=== PATIENT | female | born 1945 | race Caucasian/White ===

== ENCOUNTER 2017-06-11 20:56 | Emergency (ER) | payer MEDICARE, MEDICAID ==
[~2017-06-11] VITALS: Ht 160 cm; Wt 77.0 kg
[2017-06-11] MEDS ORDERED: HYDR25TA PO (21:08)
[2017-06-11] MEDS ORDERED: LOSA25TA21 PO (21:08)
[2017-06-11] MEDS ORDERED: INSLAN SQ ×2 (21:08)
[2017-06-11] MEDS ORDERED: GLIP10 PO (21:08)
[2017-06-11] MEDS ORDERED: APIX5TAB PO (21:08)
[2017-06-11] MEDS ORDERED: METO25 PO (21:08)
[2017-06-11] MEDS ORDERED: PRAV40 PO (21:08)
[2017-06-11 21:17] LABS: GLUCOSE,POINT OF CARE 212 MG/DL (70-110)
[2017-06-12 01:17] VITALS: BP 130/60
== END 2017-06-12 01:35 | disposition home or self-care (01) ==
LOC: EMS 21:01
DX: I83.891 Varicose veins of right lower extremity with other complications (principal); E11.9 Type 2 diabetes mellitus without complications; I10 Essential (primary) hypertension; E78.00 Pure hypercholesterolemia, unspecified; Z79.4 Long term (current) use of insulin
CPT/HCPCS: 82962; 99283